=== PATIENT | female | born 1970 | race American Indian/Alaskan Native ===

== ENCOUNTER 2017-05-15 11:35 | Inpatient (IN) | payer MEDICAID ==
[2017-05-15] MEDS ORDERED: ADRENALINE P/F SUB-Q ONE ×2 (13:46→14:19)
[2017-05-15] MEDS ORDERED: NACL 0.9% 500 ML 500 ML IV ONE (13:46)
[2017-05-15] MEDS ORDERED: MAGNESIUM SULFATE 2GM/50ML 2 GM/50 ML BAG IV ONE ×2 (13:46→13:47)
[2017-05-15] MEDS ORDERED: ATROVENT IH ONE (13:46)
[2017-05-15] MEDS ORDERED: PROVENTIL IH ONE (13:46)
[2017-05-15] MEDS ORDERED: ADRENALIN ONE ×2 (13:47→14:27)
--- NOTE | 2017-05-15 13:49 | Emergency Department Report ---
ED Asthma HPI - General Chief Complaint: Adult Asthma Stated Complaint: COLD SX Time Seen by Provider: 05/15/17 13:41 Source: patient, RN notes reviewed Mode of arrival: Ambulatory Limitations: No Limitations - History of Present Illness Initial Comments: This is a 46-year-old female who was previously unknown to this provider, patient has a past medical history of asthma, onset 20s, no intubations, multiple lifetime hospitalizations. Presents to the ER with cough, wheezing, chest tightness, mucus production, shortness of breath, symptoms have been present since the end of April. They're constant. They're getting worse. They do not radiate anywhere. It worsened with physical exertion. They're somewhat decreased with albuterol at home. No pulmonary embolus or DVT risk factors MD Complaint: "asthma attack", shortness of breath, wheezing -: Gradual, days(s) Asthma History: adult onset, history of frequent attac, history of prior ED visit Severity: severe Context: recent URI Associated Symptoms: dry cough Treatments Prior to Arrival: inhaled bronchodilator - Related Data Home Medications Medication Instructions Recorded Confirmed Last Taken Albuterol Sulfate [Albuterol 0.63% 2 puff INHALATION 3XW PRN 02/03/13 01/02/14 Unknown NEBS] Losartan [Cozaar] 50 mg PO QDAY 02/03/13 01/02/14 12/31/13 08:00 50 Previous Rx's Medication Instructions Recorded Last Taken Type Cyclobenzaprine [Flexeril] 10 mg PO TID #12 tab 02/03/13 Unknown Rx Naproxen Sodium [Aleve] 220 mg PO Q8H PRN #50 tablet 03/18/13 12/31/13 08:00 Rx 10mg oxyCODONE /ACETAMINOPHEN [Percocet 1 tab PO Q6HR PRN #14 tablet 03/18/13 09:00 Rx 5/325 mg] 10 LORazepam [Ativan] 1 mg PO QHS #7 tab 01/02/14 Unknown Rx Meclizine [Antivert] 25 mg PO Q8H PRN #21 tablet 01/02/14 Unknown Rx Allergies Allergy/AdvReac Type Severity Reaction Status Date / Time No Known Allergies Allergy Verified 01/02/14 06:58 ED Review of Systems ROS: Stated complaint: COLD SX Other details as noted in HPI Constitutional: malaise. denies: fever Eyes: denies: eye discharge ENT: congestion Respiratory: shortness of breath, wheezing Cardiovascular: dyspnea on exertion Gastrointestinal: denies: vomiting Genitourinary: as per HPI Musculoskeletal: as per HPI Skin: as per HPI Neurological: as per HPI, weakness Psychiatric: as per HPI, anxiety ED Past Medical Hx - Past Medical History Previous Medical History?: Yes Hx Hypertension: Yes Hx Arthritis: Yes Hx Asthma: Yes Additional medical history: sleep apnea. osteoarthritis. Chronic back pain - Surgical History Past Surgical History?: Yes Additional Surgical History: hysterectomy. carpel tunnel x 2. . gastric bypass. Ventral hernia repair one year ago - Social History Smoking Status: Never Smoker Substance Use Type: None - Medications Home Medications: Home Medications Medication Instructions Recorded Confirmed Last Taken Type Albuterol Sulfate [Albuterol 0.63% 2 puff INHALATION 3XW PRN 02/03/13 01/02/14 Unknown History NEBS] Cyclobenzaprine [Flexeril] 10 mg PO TID #12 tab 02/03/13 01/02/14 Unknown Rx Losartan [Cozaar] 50 mg PO QDAY 02/03/13 01/02/14 12/31/13 08:00 History 50 Naproxen Sodium [Aleve] 220 mg PO Q8H PRN #50 tablet 03/18/13 01/02/14 12/31/13 08:00 Rx 10mg oxyCODONE /ACETAMINOPHEN [Percocet 1 tab PO Q6HR PRN #14 tablet 03/18/1312/31/13 09:00 Rx 5/325 mg] 10 LORazepam [Ativan] 1 mg PO QHS #7 tab 01/02/14 Unknown Rx Meclizine [Antivert] 25 mg PO Q8H PRN #21 tablet 01/02/14 Unknown Rx ED Physical Exam - General Limitations: No Limitations General appearance: alert, in distress - Head Head exam: Present: atraumatic, normocephalic - Eye Eye exam: Present: normal appearance, EOMI. Absent: nystagmus - ENT ENT exam: Present: normal exam, normal external ear exam - Neck Neck exam: Present: normal inspection, full ROM - Respiratory Respiratory exam: Present: normal lung sounds bilaterally, respiratory distress , wheezes, rhonchi - Cardiovascular Cardiovascular Exam: Present: regular rate, normal rhythm, normal heart sounds. Absent: bradycardia, tachycardia, irregular rhythm, systolic murmur, diastolic murmur, rubs, gallop - GI/Abdominal GI/Abdominal exam: Present: soft, normal bowel sounds. Absent: distended, tenderness, guarding, rebound, rigid, pulsatile mass - Extremities Exam Extremities exam: Present: normal inspection, full ROM, normal capillary refill. Absent: tenderness, pedal edema, joint swelling, calf tenderness - Back Exam Back exam: Present: normal inspection, full ROM. Absent: tenderness, CVA tenderness (R), paraspinal tenderness, vertebral tenderness - Neurological Exam Neurological exam: Present: alert, oriented X3, CN II-XII intact, other ( Extraocular movements intact. Tongue midline. No facial droop. Facial sensation intact to light touch in the V1, V2, V3 distribution bilaterally. 5 and 5 strength in 4 extremities.. Sensation is intact to light touch in 4 extremities.). Absent: motor sensory deficit - Psychiatric Psychiatric exam: Present: anxious - Skin Skin exam: Present: warm, dry, intact, normal color. Absent: rash ED Course Vital Signs 05/15/17 05/15/17 05/15/17 13:19 14:09 14:25 Temperature 98.5 F Pulse Rate 81 Pulse Rate [ 85 88 Bilateral Upper Lobe] Respiratory 20 Rate Respiratory 20 20 Rate [Bilateral Upper Lobe] Blood Pressure 118/81 O2 Sat by Pulse 100 Oximetry - Reevaluation(s) Reevaluation #1: 05/15/17 15:26 Cardiac enzymes negative, therefore unlikely to be myocarditis or pericarditis, incidental hypokalemia is noted, this is been repleted, magnesium level is pending as well, I will defer to the inpatient team to follow this up. ED Medical Decision Making - Lab Data Result diagrams: 05/15/17 13:56 05/15/17 13:56 Vital Signs 05/15/17 05/15/17 05/15/17 13:19 14:09 14:25 Temperature 98.5 F Pulse Rate 81 Pulse Rate [ 85 88 Bilateral Upper Lobe] Respiratory 20 Rate Respiratory 20 20 Rate [Bilateral Upper Lobe] Blood Pressure 118/81 O2 Sat by Pulse 100 Oximetry Lab Results 05/15/17 05/15/17 05/15/17 Range/Units 13:56 13:56 13:56 WBC 5.3 (4.5-11.0) K/mm3 RBC 4.01 (3.65-5.03) M/mm3 Hgb 12.1 (10.1-14.3) gm/dl Hct 35.9 (30.3-42.9) % MCV 89 (79-97) fl MCH 30 (28-32) pg MCHC 34 (30-34) % RDW 14.2 (13.2-15.2) % Plt Count 259 (140-440) K/mm3 Add Manual Diff Complete Total Counted 100 Seg Neutrophils % [employer] Seg Neuts % (Manual) 50.0 (40.0-70.0) % Band Neutrophils % 3.0 % Lymphocytes % (Manual) 37.0 H (13.4-35.0) % Reactive Lymphs % (Man) 0 % Monocytes % (Manual) 9.0 H (0.0-7.3) % Eosinophils % (Manual) 1.0 (0.0-4.3) % Basophils % (Manual) 0 (0.0-1.8) % Metamyelocytes % 0 % Myelocytes % 0 % Promyelocytes % 0 % Blast Cells % 0 % Nucleated RBC % Not Reportable Seg Neutrophils # Man 2.7 (1.8-7.7) K/mm3 Band Neutrophils # 0.2 K/mm3 Lymphocytes # (Manual) 2.0 (1.2-5.4) K/mm3 Abs React Lymphs (Man) 0.0 K/mm3 Monocytes # (Manual) 0.5 (0.0-0.8) K/mm3 Eosinophils # (Manual) 0.1 (0.0-0.4) K/mm3 Basophils # (Manual) 0.0 (0.0-0.1) K/mm3 Metamyelocytes # 0.0 K/mm3 Myelocytes # 0.0 K/mm3 Promyelocytes # 0.0 K/mm3 Blast Cells # 0.0 K/mm3 WBC Morphology Not Reportable Hypersegmented Neuts Not Reportable Hyposegmented Neuts Not Reportable Hypogranular Neuts Not Reportable Smudge Cells Not Reportable Toxic Granulation Not Reportable Toxic Vacuolation Not Reportable Dohle Bodies Not Reportable Pelger-Huet Anomaly Not Reportable Nina Rods Not Reportable Platelet Estimate Not Reportable Clumped Platelets Not Reportable Plt Clumps, EDTA Not Reportable Large Platelets Not Reportable Giant Platelets Not Reportable Platelet Satelliting Not Reportable Plt Morphology Comment Not Reportable RBC Morphology Normal Dimorphic RBCs Not Reportable Polychromasia Not Reportable Hypochromasia Not Reportable Poikilocytosis Not Reportable Anisocytosis Not Reportable Microcytosis Not Reportable Macrocytosis Not Reportable Spherocytes Not Reportable Pappenheimer Bodies Not Reportable Sickle Cells Not Reportable Target Cells Not Reportable Tear Drop Cells Not Reportable Ovalocytes Not Reportable Helmet Cells Not Reportable [place] Bodies Not Reportable [place] Rings Not Reportable [place] Cells Not Reportable Bite Cells Not Reportable Crenated Cell Not Reportable Elliptocytes Not Reportable Acanthocytes (Spur) Not Reportable Rouleaux Not Reportable Hemoglobin C Crystals Not Reportable Schistocytes Not Reportable Malaria parasites Not Reportable Rogelio Bodies Not Reportable Hem Pathologist Commnt No PT 12.2 (12.2-14.9) Sec. INR 0.87 (0.87-1.13) Sodium (137-145) mmol/L Potassium (3.6-5.0) mmol/L Chloride (98-107) mmol/L Carbon Dioxide (22-30) mmol/L Anion Gap mmol/L BUN (7-17) mg/dL Creatinine (0.7-1.2) mg/dL Estimated GFR ml/min BUN/Creatinine Ratio % Glucose (65-100) mg/dL Calcium (8.4-10.2) mg/dL Total Creatine Kinase (30-135) units/L Troponin T < 0.010 (0.00-0.029) ng/mL 05/15/17 Range/Units 13:56 WBC (4.5-11.0) K/mm3 RBC (3.65-5.03) M/mm3 Hgb (10.1-14.3) gm/dl Hct (30.3-42.9) % MCV (79-97) fl MCH (28-32) pg MCHC (30-34) % RDW (13.2-15.2) % Plt Count (140-440) K/mm3 Add Manual Diff Total Counted Seg Neutrophils % Seg Neuts % (Manual) (40.0-70.0) % Band Neutrophils % % Lymphocytes % (Manual) (13.4-35.0) % Reactive Lymphs % (Man) % Monocytes % (Manual) (0.0-7.3) % Eosinophils % (Manual) (0.0-4.3) % Basophils % (Manual) (0.0-1.8) % Metamyelocytes % % Myelocytes % % Promyelocytes % % Blast Cells % % Nucleated RBC % Seg Neutrophils # Man (1.8-7.7) K/mm3 Band Neutrophils # K/mm3 Lymphocytes # (Manual) (1.2-5.4) K/mm3 Abs React Lymphs (Man) K/mm3 Monocytes # (Manual) (0.0-0.8) K/mm3 Eosinophils # (Manual) (0.0-0.4) K/mm3 Basophils # (Manual) (0.0-0.1) K/mm3 Metamyelocytes # K/mm3 Myelocytes # K/mm3 Promyelocytes # K/mm3 Blast Cells # K/mm3 WBC Morphology Hypersegmented Neuts Hyposegmented Neuts Hypogranular Neuts Smudge Cells Toxic Granulation Toxic Vacuolation Dohle Bodies Pelger-Huet Anomaly Nina Rods Platelet Estimate Clumped Platelets Plt Clumps, EDTA Large Platelets Giant Platelets Platelet Satelliting Plt Morphology Comment RBC Morphology Dimorphic RBCs Polychromasia Hypochromasia Poikilocytosis Anisocytosis Microcytosis Macrocytosis Spherocytes Pappenheimer Bodies Sickle Cells Target Cells Tear Drop Cells Ovalocytes Helmet Cells [place] Bodies [place] Rings [place] Cells Bite Cells Crenated Cell Elliptocytes Acanthocytes (Spur) Rouleaux Hemoglobin C Crystals Schistocytes Malaria parasites Rogelio Bodies Hem Pathologist Commnt PT (12.2-14.9) Sec. INR (0.87-1.13) Sodium 142 (137-145) mmol/L Potassium 3.1 L (3.6-5.0) mmol/L Chloride 100.3 (98-107) mmol/L Carbon Dioxide 23 (22-30) mmol/L Anion Gap 22 mmol/L BUN 8 (7-17) mg/dL Creatinine 0.5 L (0.7-1.2) mg/dL Estimated GFR > 60 ml/min BUN/Creatinine Ratio 16 % Glucose 92 (65-100) mg/dL Calcium 8.9 (8.4-10.2) mg/dL Total Creatine Kinase 137 H (30-135) units/L Troponin T (0.00-0.029) ng/mL - EKG Data 05/15/17 15:25 Sinus, 89 beats minute, normal axis, QTC within normal limits, not morphologically consistent with ST elevation myocardial infarction - Radiology Data Radiology results: report reviewed, image reviewed X-ray the chest, interpreted by myself and radiology: No acute disease - Medical Decision Making Differential diagnosis, including but not limited to: Asthma exacerbation, bronchitis, pericarditis, myocarditis Assessment and plan: 46-year-old female with probable status asthmaticus. She is afebrile but wheezing impressively, has no pulmonary embolus or DVT risk factors, is low risk by well's criteria. Patient given albuterol, Atrovent, steroids, magnesium, subcutaneous epinephrine 2. Her wheezing improved, but she was still short of breath and still wheezing, and had difficulty walking without shortness of breath. She will therefore be admitted to the hospital for asthma exacerbation. The case was presented to the Hospital physician, Dr. Stroud, and he accepted the patient to the medical service. Critical care attestation.: If time is entered above; I have spent that time in minutes in the direct care of this critically ill patient, excluding procedure time. ED Disposition Clinical Impression: Asthma exacerbation Qualifiers: Asthma severity: moderate Asthma persistence: persistent Qualified Code(s): J45.41 - Moderate persistent asthma with (acute) exacerbation Disposition: OP ADMIT IP TO THIS HOSP Is pt being admited?: Yes Condition: Good Referrals: PRIMARY CARE, [Primary Care Provider] - 3-5 Days
[2017-05-15 14:10] LABS: Hematocrit 35.9 % (30.3-42.9); Hemoglobin 12.1 gm/dl (10.1-14.3); Mean Corpuscular HGB Conc 34 % (30-34); Mean Corpuscular Hemoglobin 30 pg (28-32); Mean Corpuscular Volume 89 fl (79-97); Platelet Count 259 K/mm3 (140-440); Red Blood Count 4.01 M/mm3 (3.65-5.03); Red Cell Distribution Width 14.2 % (13.2-15.2)
[2017-05-15 14:19] LABS: INR 0.87 (0.87-1.13)
[2017-05-15 14:33] LABS: BUN/Creatinine Ratio 16; Blood Urea Nitrogen 8 mg/dL (7-17); Calcium 8.9 mg/dL (8.4-10.2); Hemolysis Index 9
--- NOTE | 2017-05-15 14:51 | XRay Report ---
Single view chest: History: Asthma. Findings: Normal cardiomediastinal silhouette the trachea is midline. No consolidation, pneumothorax or pleural effusion. Impression: No definite acute lung changes.
[2017-05-15 14:59] LABS: Band Neutrophils # (Manual) 0.2 K/mm3; Basophils % (Manual) 0 % (0.0-1.8); RBC Morphology Normal; Total Cells Counted 100
[2017-05-15] MEDS ORDERED: ZOFRAN IV PRN (15:43)
[2017-05-15] MEDS ORDERED: PROVENTIL IH PRN (15:43)
[2017-05-15] MEDS ORDERED: DULCOLAX PR PRN (15:43)
[2017-05-15] MEDS ORDERED: TYLENOL PO PRN (15:43)
[2017-05-15] MEDS ORDERED: MILK OF MAGNESIA PO PRN (15:43)
[2017-05-15] MEDS ORDERED: PERCOCET 5/325 PO PRN (15:45)
[2017-05-15] MEDS ORDERED: ANTIVERT PO PRN (15:45)
[2017-05-15] MEDS ORDERED: KCL 20MEQ/100ML 20 MEQ/100 ML BAG IV SCH (16:00)
--- NOTE | 2017-05-15 16:37 | History and Physical Report ---
History of Present Illness Chief complaint: I have a cold, and i feel sick, and cant breathe History of present illness: 46 YO Female with HTN, OA, Asthma, [place], Obesity Hypoventillation Syndrome presents to ED for evaluation. Pt states that she has experienced coughing, shortness of breath, and chest tightness for the past week, with worsening symptoms over the past 2 days. Pt acknowledges increased mucous production and well as dypsnea on exertion. Pt states that symptoms were initially improved with nebulizer treatments, but have now worsened even with nebulizer therapy. Pt denies fever, chills, CP, Palpitations, NVD, Syncope, prolonged travel/ immobility, individual/family history of DVT/PE, hemoptysis, trauma, cancer, unintentional weight loss, night sweats, skin rash, leg swelling/calf pain, or recent ill contacts. Pt seen and evaluated in ED and found to have Acute Hypoxemic respiratory Failure, and was treated with nebulizer and steroid therapy without significant improvement. Pt admitted to medical floor. Past History Past Surgical History: , hysterectomy, Other (Carpal tunnel, gastric bypass. Ventral hernia repair one year ago) Social history: single. denies: smoking, alcohol abuse, prescription drug abuse Family history: hypertension Medications and Allergies Allergies Allergy/AdvReac Type Severity Reaction Status Date / Time No Known Allergies Allergy Verified 01/02/14 06:58 Home Medications Medication Instructions Recorded Confirmed Last Taken Type Albuterol Sulfate [Albuterol 0.63% 2 puff INHALATION 3XW PRN 02/03/13 05/15/17 Unknown History NEBS] Escitalopram [Lexapro] 10 mg PO DAILY 05/15/17 05/15/17 Unknown History Fluticasone/Salmeterol [Advair 1 each IH PRN 05/15/17 05/15/17 Unknown History 250-50 Diskus] HYDROcodone/APAP 10-325 [[place] 1 each PO Q6HR PRN 05/15/17 05/15/17 Unknown History 10/325] Losartan/Hydrochlorothiazide 1 each PO DAILY 05/15/17 05/15/17 05/15/17 History [Losartan-Hctz 50-12.5 mg Tab] clonazePAM [Klonopin] 0.5 mg PO TID 05/15/17 05/15/17 Unknown History Active Meds: Active Medications Acetaminophen (Tylenol) 650 mg PO Q4H PRN PRN Reason: Pain MILD(1-3)/Fever >100.5/[place] Albuterol (Proventil) 2.5 mg IH Q4HRT PRN PRN Reason: Shortness Of Breath Bisacodyl (Dulcolax) 10 mg LA QDAY PRN PRN Reason: Constipation unrelieved by MOM Cyclobenzaprine HCl (Flexeril) 10 mg PO TID MANJU Potassium Chloride (Kcl 20meq/100ml) 20 meq in 100 mls @ 100 mls/hr IV Q1H [facility] Stop: 05/15/17 18:59 Last Admin: 05/15/17 16:29 Dose: 100 mls/hr Lorazepam (Ativan) 1 mg PO QHS MANJU Losartan Potassium (Cozaar) 50 mg PO QDAY MANJU Magnesium Hydroxide (Milk Of Magnesia) 30 ml PO Q4H PRN PRN Reason: Constipation Meclizine HCl (Antivert) 25 mg PO Q8H PRN PRN Reason: Vertigo Methylprednisolone Sodium Succinate (Solu-Medrol) 40 mg IV Q12HR MANJU Ondansetron HCl (Zofran) 4 mg IV Q8H PRN PRN Reason: N/V unrelieved by Reglan Oxycodone/Acetaminophen (Percocet 5/325) 1 tab PO Q6HR PRN PRN Reason: Pain Review of Systems Constitutional: no weight loss, no weight gain, no fever, no chills Ears, nose, mouth and throat: no ear pain, no ear discharge, no tinnitis, no decreased hearing, no nose pain Breasts: no change in shape, no swelling, no mass Cardiovascular: shortness of breath, no chest pain, no orthopnea, no palpitations Respiratory: cough, excessive sputum, shortness of breath, dyspnea on exertion, wheezing, respiratory infections Gastrointestinal: no nausea, no vomiting, no diarrhea, no constipation Genitourinary Female: no pelvic pain, no flank pain, no menorrhagia, no dysuria , no urinary frequency, no urgency Rectal: no pain, no incontinence, no bleeding Musculoskeletal: no neck stiffness, no neck pain, no shooting arm pain, no arm numbness/tingling, no low back pain Integumentary: no rash, no pruritis, no redness, no sores, no wounds Neurological: no paralysis, no weakness, no parathesias, no numbness, no tingling Psychiatric: no anxiety, no memory loss, no change in sleep habits, no sleep disturbances, no insomnia, no hypersomnia Endocrine: no cold intolerance, no heat intolerance, no polyphagia, no excessive thirst, no polydipsia, no polyuria Hematologic/Lymphatic: no easy bruising, no easy bleeding, no lymphadenopathy, no lymphedema Allergic/Immunologic: no urticaria, no allergic rhinitis, no wheezing Exam - Constitutional Vitals: Temp Pulse Resp BP Pulse Ox 98.5 F 99 H 20 116/65 100 05/15/17 13:19 05/15/17 15:45 05/15/17 15:45 05/15/17 15:45 05/15/17 15:45 General appearance: Present: mild distress, obese - EENT Eyes: Present: PERRL ENT: hearing intact, clear oral mucosa - Neck Neck: Present: supple, normal ROM - Respiratory Respiratory effort: labored Respiratory: bilateral: diminished, wheezing - Cardiovascular Heart Sounds: Present: S1 & S2. Absent: rub, click - Extremities Extremities: pulses symmetrical, No edema Peripheral Pulses: within normal limits - Abdominal General gastrointestinal: Present: soft, non-tender, non-distended, normal bowel sounds Female genitourinary: Present: normal - Integumentary Integumentary: Present: clear, warm, dry - Musculoskeletal Musculoskeletal: gait normal, strength equal bilaterally - Psychiatric Psychiatric: appropriate mood/affect, intact judgment & insight, agitated - Neurologic Neurologic: CNII-XII intact, moves all extremities Results - Labs CBC & Chem 7: 05/15/17 13:56 05/15/17 13:56 Labs: Abnormal lab results 05/15/17 05/15/17 05/15/17 Range/Units 13:56 13:56 13:56 Lymphocytes % (Manual) 37.0 H (13.4-35.0) % Monocytes % (Manual) 9.0 H (0.0-7.3) % Potassium 3.1 L (3.6-5.0) mmol/L Creatinine 0.5 L (0.7-1.2) mg/dL Magnesium 4.30 H (1.7-2.3) mg/dL Total Creatine Kinase 137 H (30-135) units/L Assessment and Plan - Patient Problems (1) Status asthmaticus Current Visit: Yes Status: Acute Plan to address problem: IV steroid therapy, IV magnesium, supplemental oxygen,nebulizer therapy, IV abx , supportive care, avoidance of asthma triggers, Patient counseled. (2) Acute respiratory failure Current Visit: Yes Status: Acute Plan to address problem: supplemental oxygen, nebulizer therapy, NIPPV as clinically indicated, (3) Obesity hypoventilation syndrome Current Visit: Yes Status: Acute Plan to address problem: Increased physical activity at discharge, balanced diet. (4) HTN (hypertension) Current Visit: Yes Status: Acute Qualifiers: Hypertension type: essential hypertension Qualified Code(s): I10 - Essential (primary) hypertension Plan to address problem: controlled, monitor bp q shift, (5) DVT prophylaxis Current Visit: Yes Status: Acute
[2017-05-15] MEDS ORDERED: POTASSIUM CHLORIDE FEEDTUBE ONE (17:00)
[2017-05-15] MEDS ORDERED: PERCOCET 5/325 ONE (18:06)
[2017-05-15] MEDS: FLEXERIL PO SCH (20:54)
[2017-05-15] MEDS: ATIVAN PO SCH (21:03)
[2017-05-16] MEDS: FLEXERIL PO SCH ×2 (10:29→13:20)
[2017-05-16] MEDS: COZAAR PO SCH (10:29)
--- NOTE | 2017-05-16 12:23 | Progress Note ---
Assessment and Plan Acute respiratory failure: Resolved. Continue oxygen via nasal cannula Acute asthma exacerbation: He is to have improved significantly address at this time she is not in any distress and has mild expiratory wheezing Continue intravenous steroids and aggressive nebulizer treatments and inhalation steroids Hypokalemia: Potassium was supplemented but repeat labs were not ordered We will order for tomorrow Hypertension: Fair until present medications Subjective Date of service: 05/16/17 Interval history: Patient is awake and alert Not in any acute distress Complains of feeling dizzy short of breath and wheezing when she walks to the restroom Has dry cough Denies chest pain palpitations Denies nausea or vomiting or abdominal pain or dysuria Objective - Constitutional Vitals: Vital Signs - 12hr 05/16/17 05/16/17 05/16/17 00:55 05:47 08:54 Temperature 97.1 F L 98.8 F Pulse Rate 88 51 L 74 Respiratory 34 H 19 20 Rate Blood Pressure 116/65 121/78 111/75 O2 Sat by Pulse 99 99 Oximetry 05/16/17 05/16/17 10:00 10:29 Temperature Pulse Rate Respiratory Rate Blood Pressure 116/65 O2 Sat by Pulse 97 Oximetry General appearance: Present: no acute distress - EENT Eyes: PERRL, EOM intact ENT: hearing intact, clear oral mucosa - Neck Neck: supple, normal ROM - Respiratory Respiratory effort: normal Respiratory: bilateral: wheezing (bilateral expiratory wheezing) - Cardiovascular Rhythm: regular Heart Sounds: Present: S1 & S2 Extremities: No edema - Gastrointestinal General gastrointestinal: Present: soft, non-tender. Absent: hepatomegaly, splenomegaly - Integumentary Integumentary: clear - Musculoskeletal Musculoskeletal: strength equal bilaterally - Neurologic Neurologic: no focal deficits, moves all extremities - Labs CBC & Chem 7: 05/15/17 13:56 05/15/17 13:56 Labs: Abnormal lab results 05/15/17 05/15/17 05/15/17 Range/Units 13:56 13:56 13:56 Lymphocytes % (Manual) 37.0 H (13.4-35.0) % Monocytes % (Manual) 9.0 H (0.0-7.3) % Potassium 3.1 L (3.6-5.0) mmol/L Creatinine 0.5 L (0.7-1.2) mg/dL Magnesium 4.30 H (1.7-2.3) mg/dL Total Creatine Kinase 137 H (30-135) units/L
[2017-05-17] MEDS: FLEXERIL PO SCH ×4 (00:20→22:35)
[2017-05-17] MEDS: ATIVAN PO SCH ×2 (00:20→22:34)
[2017-05-17] MEDS: COZAAR PO SCH (10:06)
[2017-05-17 10:27] LABS: BUN/Creatinine Ratio 23; Blood Urea Nitrogen 14 mg/dL (7-17); Calcium 9.3 mg/dL (8.4-10.2); Hemolysis Index 8
--- NOTE | 2017-05-17 12:12 | Progress Note ---
Assessment and Plan Acute respiratory failure: Resolved. Continue oxygen via nasal cannula Acute asthma exacerbation: she is not in any distress . No wheezing. Patient although she says she is feeling better she states she is not ready to go home Will change to by mouth steroids and continue nebulizer treatments and inhalation steroids Hypokalemia: Improved Hypertension: Fair . Continue Present medications Subjective Date of service: 05/17/17 Interval history: Feeling better She is not in any distress States her breathing is improving but not resolved Complains of dry cough Denies fever or chills Objective - Constitutional Vitals: Vital Signs - 12hr 05/17/17 05/17/17 05/17/17 00:17 04:45 04:49 Temperature 97.4 F L 98.2 F Pulse Rate 61 49 L Respiratory 17 16 Rate Blood Pressure 128/82 116/68 O2 Sat by Pulse 99 96 Oximetry 05/17/17 05/17/17 05/17/17 08:05 09:16 10:06 Temperature 98.1 F Pulse Rate 65 Respiratory 16 Rate Blood Pressure 116/63 116/63 O2 Sat by Pulse 99 98 Oximetry 05/17/17 11:47 Temperature 98.3 F Pulse Rate 82 Respiratory 18 Rate Blood Pressure 121/79 O2 Sat by Pulse 98 Oximetry General appearance: Present: no acute distress - EENT Eyes: PERRL, EOM intact ENT: hearing intact, clear oral mucosa - Neck Neck: supple, normal ROM - Respiratory Respiratory effort: normal Respiratory: bilateral: CTA - Cardiovascular Rhythm: regular Heart Sounds: Present: S1 & S2 Extremities: No edema - Gastrointestinal General gastrointestinal: Present: soft, non-tender - Musculoskeletal Musculoskeletal: strength equal bilaterally - Neurologic Neurologic: no focal deficits - Psychiatric Psychiatric: appropriate mood/affect - Labs CBC & Chem 7: 05/15/17 13:56 05/17/17 09:28 Labs: Abnormal lab results 05/17/17 Range/Units 09:28 Creatinine 0.6 L (0.7-1.2) mg/dL Glucose 103 H (65-100) mg/dL
[2017-05-18] MEDS: COZAAR PO SCH (09:25)
[2017-05-18] MEDS: FLEXERIL PO SCH ×2 (09:25→14:22)
--- NOTE | 2017-05-18 12:37 | Discharge Summary ---
Providers - Providers Date of Admission: 05/15/17 15:43 Date of discharge: 05/18/17 Attending physician: ALYSSA BOJORQUEZ Primary care physician: ROBERTA MINAYA Hospitalization Condition: Good Hospital course: Discharge diagnosis and management: Acute respiratory failure: Resolved. Continue oxygen via nasal cannula Acute asthma exacerbation: she is not in any distress . No wheezing. Patient although she says she is feeling better she states she is not ready to go home Will change to by mouth steroids and continue nebulizer treatments and inhalation steroids Hypokalemia: Improved Hypertension: Fair . Continue Present medications Disposition: TO HOME OR SELFCARE Time spent for discharge: 32 minutes Core Measure Documentation - Palliative Care Palliative Care/ Comfort Measures: Not Applicable - Core Measures Any of the following diagnoses?: none Exam - Physical Exam Narrative exam: General appearance: Present: no acute distress - EENT Eyes: PERRL, EOM intact ENT: hearing intact, clear oral mucosa - Neck Neck: supple, normal ROM - Respiratory Respiratory effort: normal Respiratory: bilateral: CTA - Cardiovascular Rhythm: regular Heart Sounds: Present: S1 & S2 Extremities: No edema - Gastrointestinal General gastrointestinal: Present: soft, non-tender - Musculoskeletal Musculoskeletal: strength equal bilaterally - Neurologic Neurologic: no focal deficits - Psychiatric Psychiatric: appropriate mood/affect - Constitutional Vitals: Temp Pulse Resp BP Pulse Ox 98.3 F 89 16 136/76 99 05/18/17 07:33 05/18/17 09:25 05/18/17 07:33 05/18/17 09:25 05/18/17 07:33 Plan Activity: advance as tolerated Weight Bearing Status: Weight Bear as Tolerated Diet: low fat, low salt Follow up with: PRIMARY CARE, [Referring] - 3-5 Days Prescriptions: Azithromycin [Zithromax] 250 mg PO DAILY #4 tablet Budesonide/Formoterol Fumarate [Symbicort 80-4.5 Mcg Inhaler] 10.2 gm IH BID #1 hfa.aer.ad Prednisone 50 mg PO DAILY #4 tablet
[2017-05-18 15:49] VITALS: BP 138/79
== END 2017-05-18 17:40 | disposition home or self-care (01) | DRG 189 ==
LOC: ED 11:35 → 3A 15:43
PROVIDERS: ADMIT Internal Medicine; ATTEND Internal Medicine
DX: J96.01 Acute respiratory failure with hypoxia (principal); J45.901 Unspecified asthma with (acute) exacerbation; E66.2 Morbid (severe) obesity with alveolar hypoventilation; Z68.37 Body mass index [BMI] 37.0-37.9, adult; Z71.3 Dietary counseling and surveillance; I10 Essential (primary) hypertension; G89.29 Other chronic pain; M54.9 Dorsalgia, unspecified; Z90.710 Acquired absence of both cervix and uterus; Z82.49 Family history of ischemic heart disease and other diseases of the circulatory system; E87.6 Hypokalemia
CPT/HCPCS: 36415; 71045; 80048; 82550; 83735; 84484; 85007; 85025; 85610; 93005; 93010; 94640; 96365; 96372; 96375; J0171; J2920; J2930; J3475; J3480; J7040

== ENCOUNTER 2018-12-24 11:48 | Outpatient (CLI) | payer MEDICAID ==
--- NOTE | 2018-12-27 11:30 | Mammography Report ---
BILATERAL DIGITAL SCREENING MAMMOGRAM WITH CAD INDICATION: Routine screening mammography. TECHNIQUE: Digital bilateral 2D mammography was obtained in the craniocaudal and mediolateral obliq ue projections. This examination was interpreted with the benefit of Computer-Aided Detection analysi s. COMPARISON: 10/19/2015 FINDINGS: Breast Density: The breasts are almost entirely fatty. No mass, architectural distortion or suspicious calcifications. IMPRESSION:No mammographic evidence of malignancy. BI-RADS Category 1: Negative. No mammographic evidence of malignancy. Recommend routine screening m ammography in one year. A "normal" or negative report should not discourage follow up or biopsy of a clinically significant f inding. A written summary of these findings will be mailed to the patient. The patient will be entered into a mammography reporting system which will generate a reminder letter for the patient's next appointmen t at the appropriate interval. The [employer] recommends yearly mammograms starting at age 40 and continuing as l bhupinder as a woman is in good health. Breast MRI is recommended for women with an approximate 20-25% or greater lifetime risk of breast cancer, including women with a strong family history of breast or ova shay cancer or who have been treated for Hodgkin's disease. Signer Name: Castillo Enamorado MD Signed: 12/27/2018 11:25 AM Workstation Name: [id number]
== END 2018-12-24 11:49 | disposition home or self-care (01) ==
LOC: MAMMO 11:48
PROVIDERS: ATTEND Family Medicine
DX: Z12.31 Encounter for screening mammogram for malignant neoplasm of breast (principal); E66.9 Obesity, unspecified; I10 Essential (primary) hypertension; M19.90 Unspecified osteoarthritis, unspecified site; Z90.710 Acquired absence of both cervix and uterus
CPT/HCPCS: 77067

== ENCOUNTER 2020-05-30 10:28 | Outpatient (CLI) | payer MEDICAID ==
--- NOTE | 2020-05-30 11:46 | Mammography Report ---
DIGITAL SCREENING MAMMOGRAM WITH CAD, 05/30/2020 CLINICAL INFORMATION / INDICATION: Routine screening mammography. TECHNIQUE: Digital bilateral 2D mammography was obtained in the craniocaudal and mediolateral obliqu e projections. This examination was interpreted with the benefit of Computer-Aided Detection analysis . COMPARISON: 12/24/2018, 10/19/2015 FINDINGS: Breast Density: The breasts are almost entirely fatty. No dominant mass, suspicious calcifications, or architectural distortion in either breast. IMPRESSION: No mammographic evidence of malignancy. Follow up recommendation: Routine yearly BI-RADS Category 1: Negative. A "normal" or negative report should not discourage follow up or biopsy of a clinically significant f inding. A written summary of these findings will be mailed to the patient. The patient will be entered into a mammography reporting system which will generate a reminder letter for the patient's next appointmen t at the appropriate interval. The [employer] recommends yearly mammograms starting at age 40 and continuing as l bhupinder as a woman is in good health. Breast MRI is recommended for women with an approximate 20-25% or greater lifetime risk of breast cancer, including women with a strong family history of breast or ova shay cancer or who have been treated for Hodgkin's disease. Signer Name: Cortez Musa MD Signed: 05/30/2020 11:42 AM Workstation Name: [id number]
== END 2020-05-30 10:29 | disposition home or self-care (01) ==
LOC: MAMMO 10:28
PROVIDERS: ATTEND Family Medicine
DX: Z12.31 Encounter for screening mammogram for malignant neoplasm of breast (principal)
CPT/HCPCS: 77067

== ENCOUNTER 2020-07-17 06:15 | Emergency (ER) | payer MEDICAID ==
[2020-07-17] MEDS ORDERED: ASPIRIN 325 MG TAB PO ONE (06:32)
--- NOTE | 2020-07-17 06:39 | Event Note ---
ED Screening Note ED Screening Note: 49-year-old patient with a significant family history presents emerged department complaining of waking with left-sided chest pain associated with occasional shortness of breath of an unknown etiology no trauma was involved This initial assessment/diagnostic orders/clinical plan/treatment(s) is/are subject to change based on patients health status, clinical progression and re- assessment by fellow clinical providers in the ED. Further treatment and workup at subsequent clinical providers discretion. Patient/guardian urged not to elope from the ED as their condition may be serious if not clinically assessed and managed. Initial orders include: Plan cardiac evaluation
--- NOTE | 2020-07-17 07:32 | XRay Report ---
CHEST 1 VIEW 07/17/2020 6:56 AM INDICATION / CLINICAL INFORMATION: Chest Pain. COMPARISON: 05/15/2017. FINDINGS: SUPPORT DEVICES: None. HEART / MEDIASTINUM: No significant abnormality. LUNGS / PLEURA: No significant pulmonary or pleural abnormality. No pneumothorax. ADDITIONAL FINDINGS: No significant additional findings. IMPRESSION: No acute abnormality. Signer Name: Leonidas Reynolds MD Signed: 07/17/2020 7:28 AM Workstation Name: [id number]
[2020-07-17 07:49] LABS: Hematocrit 34.2 % (30.3-42.9); Hemoglobin 11.4 gm/dl (10.1-14.3); Red Blood Count 3.75 M/mm3 (3.65-5.03)
[2020-07-17 07:50] LABS: Basophils % (Auto) 0.4 % (0.0-1.8); Eosinophils % (Auto) 0.3 % (0.0-4.3); Lymphocytes # (Auto) 0.8 K/mm3 (1.2-5.4); Lymphocytes % (Auto) 8.1 % (13.4-35.0); Mean Corpuscular HGB Conc 33 % (30-34); Mean Corpuscular Volume 91 fl (79-97); Monocytes # (Auto) 0.1 K/mm3 (0.0-0.8); Monocytes % (Auto) 1.4 % (0.0-7.3); Platelet Count 295 K/mm3 (140-440); Red Cell Distribution Width 13.8 % (13.2-15.2)
[2020-07-17 08:07] LABS: Alanine Aminotransferase 7 units/L (7-56); Albumin 3.8 g/dL (3.9-5); Blood Urea Nitrogen 12 mg/dL (7-17); Calcium 9.3 mg/dL (8.4-10.2); Hemolysis Index 5
[2020-07-17 08:12] LABS: BUN/Creatinine Ratio 24
--- NOTE | 2020-07-17 08:13 | Emergency Department Report ---
ED General Adult HPI - General Chief complaint: Chest Pain Stated complaint: CHEST PAIN Time Seen by Provider: 07/17/20 08:12 Source: patient Mode of arrival: Wheelchair Limitations: No Limitations - History of Present Illness Initial comments: Patient is a 49-year-old asthmatic female with history of hypertension who presents emergency department after beginning to have dull, positional, moderate pain to her left chest since awakening this morning and having a breathing treatment for asthma. Patient denies ongoing shortness of breath, denies pleur itic symptoms, denies calf pain or swelling. Patient denies fever or cough. Patient had similar episode several years ago which was self-limited. - Related Data Home Medications Medication Instructions Recorded Confirmed Last Taken Albuterol Sulfate [Albuterol 0.63% 2 puff INHALATION 3XW PRN 02/03/13 05/15/17 Unknown NEBS] Escitalopram [Lexapro] 10 mg PO DAILY 05/15/17 05/15/17 Unknown HYDROcodone/APAP 10-325 [[place] 1 each PO Q6HR PRN 05/15/17 05/15/17 Unknown 10-325 mg TAB] clonazePAM [Klonopin] 0.5 mg PO TID 05/15/17 05/15/17 Unknown Previous Rx's Medication Instructions Recorded Last Taken Type Azithromycin [Zithromax] 250 mg PO DAILY #4 tablet 05/18/17 Unknown Rx Budesonide/Formoterol Fumarate 10.2 gm IH BID #1 hfa.aer.ad 05/18/17 Unknown Rx [Symbicort 80-4.5 Mcg Inhaler] predniSONE [Prednisone] 50 mg PO DAILY #4 tablet 05/18/17 Unknown Rx Azithromycin [Zithromax TAB] 250 mg PO QDAY 4 Days #4 tablet 07/17/20 Unknown Rx Cholecalciferol (Vitamin D3) 5,000 unit PO DAILY #1 capsule 07/17/20 Unknown Rx [Vitamin D3 5,000 UNIT] Allergies Allergy/AdvReac Type Severity Reaction Status Date / Time No Known Allergies Allergy Verified 01/02/14 06:58 ED Review of Systems ROS: Stated complaint: CHEST PAIN Other details as noted in HPI Constitutional: denies: chills, fever Eyes: denies: eye pain, eye discharge, vision change ENT: denies: ear pain, throat pain Respiratory: see HPI Cardiovascular: as per HPI Endocrine: no symptoms reported Gastrointestinal: denies: abdominal pain, nausea, diarrhea Genitourinary: denies: urgency, dysuria, discharge Musculoskeletal: denies: back pain, joint swelling, arthralgia Skin: denies: rash, lesions Neurological: denies: headache, weakness, paresthesias Psychiatric: denies: anxiety, depression Hematological/Lymphatic: denies: easy bleeding, easy bruising ED Past Medical Hx - Past Medical History Previous Medical History?: Yes Hx Hypertension: Yes Hx Congestive Heart Failure: No Hx Diabetes: No Hx Arthritis: Yes Hx Asthma: Yes Hx COPD: No Additional medical history: sleep apnea. osteoarthritis. Chronic back pain - Surgical History Past Surgical History?: Yes Additional Surgical History: hysterectomy. carpel tunnel x 2. . gastric bypass. Ventral hernia repair one year ago - Social History Smoking Status: Never Smoker - Medications Home Medications: Home Medications Medication Instructions Recorded Confirmed Last Taken Type Albuterol Sulfate [Albuterol 0.63% 2 puff INHALATION 3XW PRN 02/03/13 05/15/17 Unknown History NEBS] Escitalopram [Lexapro] 10 mg PO DAILY 05/15/17 05/15/17 Unknown History HYDROcodone/APAP 10-325 [[place] 1 each PO Q6HR PRN 05/15/17 05/15/17 Unknown History 10-325 mg TAB] clonazePAM [Klonopin] 0.5 mg PO TID 05/15/17 05/15/17 Unknown History Azithromycin [Zithromax] 250 mg PO DAILY #4 tablet 05/18/17 Unknown Rx Budesonide/Formoterol Fumarate 10.2 gm IH BID #1 hfa.aer.ad 05/18/17 Unknown Rx [Symbicort 80-4.5 Mcg Inhaler] predniSONE [Prednisone] 50 mg PO DAILY #4 tablet 05/18/17 Unknown Rx Azithromycin [Zithromax TAB] 250 mg PO QDAY 4 Days #4 tablet 07/17/20 Unknown Rx Cholecalciferol (Vitamin D3) 5,000 unit PO DAILY #1 capsule 07/17/20 Unknown Rx [Vitamin D3 5,000 UNIT] ED Physical Exam - General Limitations: No Limitations General appearance: alert, in no apparent distress - Head Head exam: Present: atraumatic, normocephalic - Eye Eye exam: Present: normal appearance - ENT ENT exam: Present: mucous membranes moist - Neck Neck exam: Present: normal inspection - Respiratory Respiratory exam: Present: normal lung sounds bilaterally. Absent: respiratory distress - Cardiovascular Cardiovascular Exam: Present: regular rate, normal rhythm - GI/Abdominal GI/Abdominal exam: Present: soft, normal bowel sounds - Extremities Exam Extremities exam: Present: normal inspection - Back Exam Back exam: Present: normal inspection - Neurological Exam Neurological exam: Present: alert, oriented X3 - Psychiatric Psychiatric exam: Present: normal affect, normal mood - Skin Skin exam: Present: warm, dry, intact, normal color. Absent: rash ED Course Vital Signs 07/17/20 07/17/20 07/17/20 06:17 08:31 08:45 Temperature 99 F Pulse Rate 100 H 72 68 Respiratory 20 22 17 Rate Blood Pressure 122/55 114/56 117/59 O2 Sat by Pulse 100 100 99 Oximetry 07/17/20 07/17/20 07/17/20 09:01 09:15 09:31 Temperature Pulse Rate 77 66 67 Respiratory 18 23 16 Rate Blood Pressure 117/59 109/47 109/47 O2 Sat by Pulse 99 100 100 Oximetry 07/17/20 07/17/20 07/17/20 10:01 10:31 11:01 Temperature Pulse Rate 56 L 58 L 61 Respiratory 15 17 15 Rate Blood Pressure 101/47 94/49 95/55 O2 Sat by Pulse 99 98 98 Oximetry 07/17/20 07/17/20 11:31 12:00 Temperature Pulse Rate 56 L 62 Respiratory 16 17 Rate Blood Pressure 96/48 101/47 O2 Sat by Pulse 99 100 Oximetry - Reevaluation(s) Reevaluation #1: 07/17/20 08:32 Patient initially treated with Toradol 15 mg IV x1 for presumed musculoskeletal chest pain. Reevaluation #2: 07/17/20 08:43 Patient now complaining of nausea, given Zofran 4 mg IV x1 Reevaluation #3: 07/17/20 13:34 Patient reevaluated and in no acute distress. Patient without any respiratory difficulty and or complaint. Lungs remain clear to auscultation bilaterally, patient saturating 95 to 100% on room air. Patient advised of CT chest findings indicating possible pneumonia consistent with coronavirus. Consequently advised to have low threshold to return to the emergency department, also advise follow- up with PMD in 1 to 2 days for reevaluation and outpatient Covid testing. ED Medical Decision Making - Lab Data Result diagrams: 07/17/20 07:02 07/17/20 07:02 Lab Results 07/17/20 07/17/20 07/17/20 Range/Units 07:02 07:02 07:02 WBC 10.4 (4.5-11.0) K/mm3 RBC 3.75 (3.65-5.03) M/mm3 Hgb 11.4 (10.1-14.3) gm/dl Hct 34.2 (30.3-42.9) % MCV 91 (79-97) fl MCH 30 (28-32) pg MCHC 33 (30-34) % RDW 13.8 (13.2-15.2) % Plt Count 295 (140-440) K/mm3 Lymph % (Auto) 8.1 L (13.4-35.0) % [place] % (Auto) 1.4 (0.0-7.3) % Eos % (Auto) 0.3 (0.0-4.3) % Baso % (Auto) 0.4 (0.0-1.8) % Lymph # (Auto) 0.8 L (1.2-5.4) K/mm3 [place] # (Auto) 0.1 (0.0-0.8) K/mm3 Eos # (Auto) 0.0 (0.0-0.4) K/mm3 Baso # (Auto) 0.0 (0.0-0.1) K/mm3 Add Manual Diff Complete Seg Neutrophils % 89.8 H (40.0-70.0) % Seg Neutrophils # 9.3 H (1.8-7.7) K/mm3 D-Dimer (0-234) ng/mlDDU Sodium 143 (137-145) mmol/L Potassium 3.2 L (3.6-5.0) mmol/L Chloride 103.0 (98-107) mmol/L Carbon Dioxide 28 (22-30) mmol/L Anion Gap 15 mmol/L BUN 12 (7-17) mg/dL Creatinine 0.5 L (0.6-1.2) mg/dL Estimated GFR > 60 ml/min BUN/Creatinine Ratio 24 % Glucose 103 H (65-100) mg/dL Calcium 9.3 (8.4-10.2) mg/dL Total Bilirubin 0.70 (0.1-1.2) mg/dL AST 16 (5-40) units/L ALT 7 (7-56) units/L Alkaline Phosphatase 73 (35-129) units/L Troponin T < 0.010 (0.00-0.029) ng/mL NT-Pro-B Natriuret Pep 157.9 (0-900) pg/mL Total Protein 7.1 (6.3-8.2) g/dL Albumin 3.8 L (3.9-5) g/dL Albumin/Globulin Ratio 1.2 % 07/17/20 07/17/20 Range/Units 09:26 09:26 WBC (4.5-11.0) K/mm3 RBC (3.65-5.03) M/mm3 Hgb (10.1-14.3) gm/dl Hct (30.3-42.9) % MCV (79-97) fl MCH (28-32) pg MCHC (30-34) % RDW (13.2-15.2) % Plt Count (140-440) K/mm3 Lymph % (Auto) (13.4-35.0) % [place] % (Auto) (0.0-7.3) % Eos % (Auto) (0.0-4.3) % Baso % (Auto) (0.0-1.8) % Lymph # (Auto) (1.2-5.4) K/mm3 [place] # (Auto) (0.0-0.8) K/mm3 Eos # (Auto) (0.0-0.4) K/mm3 Baso # (Auto) (0.0-0.1) K/mm3 Add Manual Diff Seg Neutrophils % (40.0-70.0) % Seg Neutrophils # (1.8-7.7) K/mm3 D-Dimer 264.81 H (0-234) ng/mlDDU Sodium (137-145) mmol/L Potassium (3.6-5.0) mmol/L Chloride (98-107) mmol/L Carbon Dioxide (22-30) mmol/L Anion Gap mmol/L BUN (7-17) mg/dL Creatinine (0.6-1.2) mg/dL Estimated GFR ml/min BUN/Creatinine Ratio % Glucose (65-100) mg/dL Calcium (8.4-10.2) mg/dL Total Bilirubin (0.1-1.2) mg/dL AST (5-40) units/L ALT (7-56) units/L Alkaline Phosphatase (35-129) units/L Troponin T < 0.010 (0.00-0.029) ng/mL NT-Pro-B Natriuret Pep (0-900) pg/mL Total Protein (6.3-8.2) g/dL Albumin (3.9-5) g/dL Albumin/Globulin Ratio % Vital Signs 07/17/20 07/17/20 07/17/20 06:17 08:31 08:45 Temperature 99 F Pulse Rate 100 H 72 68 Respiratory 20 22 17 Rate Blood Pressure 122/55 114/56 117/59 O2 Sat by Pulse 100 100 99 Oximetry 07/17/20 07/17/20 07/17/20 09:01 09:15 09:31 Temperature Pulse Rate 77 66 67 Respiratory 18 23 16 Rate Blood Pressure 117/59 109/47 109/47 O2 Sat by Pulse 99 100 100 Oximetry 07/17/20 07/17/20 07/17/20 10:01 10:31 11:01 Temperature Pulse Rate 56 L 58 L 61 Respiratory 15 17 15 Rate Blood Pressure 101/47 94/49 95/55 O2 Sat by Pulse 99 98 98 Oximetry 07/17/20 07/17/20 11:31 12:00 Temperature Pulse Rate 56 L 62 Respiratory 16 17 Rate Blood Pressure 96/48 101/47 O2 Sat by Pulse 99 100 Oximetry - EKG Data -: EKG Interpreted by Me (Sinus rhythm at 90, no ST-T changes, normal QRS 0631) - Medical Decision Making CURB65: 0 Critical care attestation.: If time is entered above; I have spent that time in minutes in the direct care of this critically ill patient, excluding procedure time. ED Disposition Clinical Impression: CAP (community acquired pneumonia) Disposition: DC-01 TO HOME OR SELFCARE Is pt being admited?: No Condition: Stable Instructions: Community-Acquired Pneumonia, Adult, Bacterial Pneumonia (ED) Prescriptions: Cholecalciferol (Vitamin D3) [Vitamin D3 5,000 UNIT] 5,000 unit PO DAILY #1 capsule Azithromycin [Zithromax TAB] 250 mg PO QDAY 4 Days #4 tablet Referrals: PRIMARY CARE,MD [Primary Care Provider] - 3-5 Days Heart Score - HEART Score History: Slightly suspicious EKG: Normal Age: 45-65 Risk factors: 1-2 risk factors Troponin: < normal limit ((+) HTN, (+) maternal CAD) HEART Score: 2 - Critical Actions Critical Actions: 0-3 pts:0.9-1.7%risk of adverse cardiac event.Candidate for discharge
[2020-07-17] MEDS ORDERED: POTASSIUM CHLORIDE ER 20 MEQ TAB PO ONE (08:25)
[2020-07-17] MEDS ORDERED: KETOROLAC 30 MG/1 ML INJ IV ONE (08:32)
[2020-07-17] MEDS ORDERED: ONDANSETRON 4 MG/2 ML INJ ONE (08:42)
[2020-07-17] MEDS ORDERED: ONDANSETRON 4 MG/2 ML INJ IV ONE (08:43)
[2020-07-17] MEDS ORDERED: KETOROLAC 60 MG/2 ML INJ ONE (11:01)
[2020-07-17 12:37] VITALS: BP 101/47
--- NOTE | 2020-07-17 13:22 | Cat Scan Report ---
CT angio chest INDICATION / CLINICAL INFORMATION: chest pain. TECHNIQUE: Axial CT images were obtained through the chest after injection of IV contrast. 3 plane MIP and/or 3D reconstructions were produced. All CT scans at this location are performed using CT dose reduction f or ALARA by means of automated exposure control. COMPARISON: None available. FINDINGS: PULMONARY ARTERIES: No pulmonary emboli. HEART: No significant abnormality. MEDIASTINUM / NIKA: No significant abnormality. LUNGS: Small quantity of peripheral groundglass opacities in the left upper lobe. Left lower lobe dep endent atelectasis. No pleural effusion. No pneumothorax. ADDITIONAL FINDINGS: None. UPPER ABDOMEN: Bilateral renal cysts.. SKELETAL STRUCTURES: No significant osseous abnormality. IMPRESSION: 1. No CT evidence for pulmonary embolism. 2. Very mild left upper lobe peripheral groundglass opacities could be infectious and/or inflammatory in etiology. Otherwise, no significant abnormality. Signer Name: Erasmo Villanueva MD Signed: 07/17/2020 1:17 PM Workstation Name: [id number]
[2020-07-17] MEDS ORDERED: AZITHROMYCIN 250 MG TAB PO ONE (13:26)
== END 2020-07-17 13:44 | disposition home or self-care (01) ==
LOC: ED 06:15
DX: J18.9 Pneumonia, unspecified organism (principal); I10 Essential (primary) hypertension; J45.909 Unspecified asthma, uncomplicated; M19.90 Unspecified osteoarthritis, unspecified site; Z90.710 Acquired absence of both cervix and uterus; Z79.899 Other long term (current) drug therapy; Z98.890 Other specified postprocedural states
CPT/HCPCS: 36415; 71045; 71275; 80053; 83880; 84484; 85025; 85379; 93005; 96374; 96375; 99285; J1885; J2405; Q9967

== ENCOUNTER 2021-12-09 11:23 | Outpatient (CLI) | payer MEDICAID ==
--- NOTE | 2021-12-10 10:33 | Mammography Report ---
DIGITAL SCREENING MAMMOGRAM WITH CAD, 12/09/2021 CLINICAL INFORMATION / INDICATION: Routine screening mammography TECHNIQUE: Digital 2D mammography was obtained in the craniocaudal and mediolateral oblique projectio ns. This examination was interpreted with the benefit of Computer-Aided Detection analysis. COMPARISON: 05/30/2020 FINDINGS: Breast Density: There are scattered areas of fibroglandular density. No dominant mass, suspicious calcifications, or architectural distortion in either breast. Minimal benign-appearing calcifications are noted. IMPRESSION: No mammographic evidence of malignancy. Follow up recommendation: Routine yearly screening mammogram. BI-RADS Category 2: BENIGN. A "normal" or negative report should not discourage follow up or biopsy of a clinically significant f inding. A written summary of these findings will be mailed to the patient. The patient will be entered into a mammography reporting system which will generate a reminder letter for the patient's next appointmen t at the appropriate interval. The [employer] recommends yearly mammograms starting at age 40 and continuing as l bhupinder as a woman is in good health. Breast MRI is recommended for women with an approximate 20-25% or greater lifetime risk of breast cancer, including women with a strong family history of breast or ova shay cancer or who have been treated for Hodgkin's disease. Signer Name: Bihn Sanchez MD Signed: 12/10/2021 10:28 AM Workstation Name: [email or web address]
== END 2021-12-09 11:24 | disposition home or self-care (01) ==
LOC: MAMMO 11:23
PROVIDERS: ATTEND Family Medicine
DX: Z12.31 Encounter for screening mammogram for malignant neoplasm of breast (principal); N64.89 Other specified disorders of breast
CPT/HCPCS: 77067